=== PATIENT | male | born 1975 | race Caucasian/White ===

== ENCOUNTER 2020-11-29 08:21 | Day surgery (SDC) | payer BC, OTHER ==
[~2020-11-29 08:21] MED LIST: Lactated Ringers 1,000 ML IV SCH; propofoL 50 ML ONE
--- NOTE | 2020-11-29 09:20 | PCM.PREANE ---
Preanesthetic Assessment - Procedure Proposed Procedure: Colonoscopy - Anesthesia/Transfusion/Family Hx Anesthesia History: Prior Anesthesia Without Reaction Transfusion History: No Prior Transfusion(s) - Review of Systems Other: Reports: None (Chews Tobacco) - Physical Assessment NPO Status Date: 11/27/20 NPO Status Time: 22:30 Height: 5 ft 8 in Weight: 88.904 kg ASA Class: 2 Airway Class: Mallampati = 2 Thyro-Mental Finger Breadths: 3 Mouth Opening Finger Breadths: 3 - Allergies Allergies/Adverse Reactions: Allergies Allergy/AdvReac Type Severity Reaction Status Date / Time amoxicillin Allergy Rash Verified 11/22/20 11:37 - Acknowledgements Anesthesia Type Planned: General Anesthesia Pt an Appropriate Candidate for the Planned Anesthesia: Yes Alternatives and Risks of Anesthesia Discussed w Pt/Guardian: Yes Pt/Guardian Understands and Agrees with Anesthesia Plan: Yes PreAnesthesia Questionnaire HEENT History: Reports: Other (See Below) Other HEENT History: wears contacts Cardiovascular History: Reports: None Respiratory History: Reports: Other (See Below) Other Respiratory History: recently did a home test for sleep apnea- recommended by his dentist- no reports yet Gastrointestinal History: Reports: Chronic Diarrhea, Other (See Below) Other Gastrointestinal History: Abdominal pain Genitourinary History: Reports: None Musculoskeletal History: Reports: Fracture Other Musculoskeletal History: hx of fx right hand Neurological History: Reports: None Psychiatric History: Reports: Anxiety, Depression Endocrine/Metabolic History: Reports: None Hematologic History: Reports: None Immunologic History: Reports: None Oncologic (Cancer) History: Reports: None Dermatologic History: Reports: None - Past Surgical History Head Surgeries/Procedures: Reports: None HEENT Surgical History: Reports: None Cardiovascular Surgical History: Reports: None Respiratory Surgical History: Reports: None GI Surgical History: Reports: None Male Surgical History: Reports: None Endocrine Surgical History: Reports: None Neurological Surgical History: Reports: None Musculoskeletal Surgical History: Reports: Arthroscopic Knee, Other (See Below) Other Musculoskeletal Surgeries/Procedures:: ORIF right hand- has pins Oncologic Surgical History: Reports: None - SUBSTANCE USE Tobacco Use Status *Q: Current Every Day Tobacco User Tobacco Use Within Last Twelve Months: Snuff/Dip Recreational Drug Use History: No - HOME MEDS Home Medications: Home Meds ALPRAZolam [Xanax] 1 mg PO TID PRN 11/22/20 [History] buPROPion HCL [Bupropion HCl Sr] 150 mg PO DAILY 11/22/20 [History] - CURRENT (IN HOUSE) MEDS Current Meds: Current Medications Lactated Ringer's (Ringers, Lactated) 1,000 mls @ 125 mls/hr IV ASDIRECTED JUJU Discontinued Medications Propofol (Diprivan 50 Ml) Confirm Administered Dose 50 mls @ as directed .ROUTE .STK-MED ONE Stop: 11/29/20 06:29
[2020-11-29] MEDS ORDERED: Ondansetron 4 MG/2 ML SDV ONE (10:03)
[2020-11-29] MEDS ORDERED: Lidocaine 2% 5 ML SDV ONE (10:03)
[2020-11-29] MEDS ORDERED: fentaNYL 100 MCG/2 ML SDV ONE (10:03)
--- NOTE | 2020-11-29 10:25 | PCM.OPNOTE ---
- General Post-Op/Procedure Note Date of Surgery/Procedure: 11/29/20 Operative Procedure(s): Colonoscopy Pre Op Diagnosis: Left-sided abdominal pain. Sigmoid colon thickening on CT scan. Post-Op Diagnosis: No evidence of neoplasia or inflammatory bowel disease. Anesthesia Technique: MAC (ASA II) Primary Surgeon: Mumtaz Earl Condition: Good Free Text/Narrative:: DICTATION [id number] CPT CODE 16733
[2020-11-29] MEDS ORDERED: Lactated Ringers 1,000 ML IV SCH (10:30)
--- NOTE | 2020-11-29 10:37 | PCM.POSTAN ---
POST ANESTHESIA ASSESSMENT - MENTAL STATUS Mental Status: Alert - VITAL SIGNS Vital Signs: Last Vital Signs Temp 95.9 F L 11/29/20 09:20 Pulse 62 11/29/20 10:30 Resp 13 11/29/20 10:30 BP 115/81 11/29/20 10:30 Pulse Ox 96 11/29/20 10:30 - RESPIRATORY Respiratory Status: Respiratory Rate WNL - CARDIOVASCULAR CV Status: Pulse Rate WNL, Blood Pressure Stable - GASTROINTESTINAL GI Status: No Symptoms - PAIN Pain Score: 0 - POST OP HYDRATION Hydration Status: Adequate & Stable - OBSERVATIONS Free Text/Narrative:: Pt doing well post-op
--- NOTE | 2020-11-29 10:42 | PCM48HPAN ---
Post Anesthesia Note - EVALUATION WITHIN 48HRS OF ANESTHETIC Vital Signs in Normal Range: Yes Patient Participated in Evaluation: Yes Respiratory Function Stable: Yes Airway Patent: Yes Cardiovascular Function Stable: Yes Hydration Status Stable: Yes Pain Control Satisfactory: Yes Nausea and Vomiting Control Satisfactory: Yes Mental Status Recovered: Yes Vital Signs: Last Vital Signs Temp 95.9 F L 11/29/20 09:20 Pulse 62 11/29/20 10:30 Resp 13 11/29/20 10:30 BP 115/81 11/29/20 10:30 Pulse Ox 96 11/29/20 10:30 - COMMENTS/OBSERVATIONS Free Text/Narrative:: Pt doing well post-op. VSS. No apparent anesthetic complications.
--- NOTE | 2020-11-29 13:38 | OR ---
SURGEON: Mumtaz Earl M.D. DATE OF PROCEDURE: 11/29/2020 OPERATION PERFORMED: Colonoscopy. PRIMARY SURGEON: Mumtaz Earl MD ANESTHESIA: MAC. ASA CLASSIFICATION: II. PREOPERATIVE DIAGNOSES: Left-sided abdominal pain with abnormal CT scan, possible colitis. POSTOPERATIVE DIAGNOSES: No evidence of neoplasia or inflammatory bowel disease. DESCRIPTION OF PROCEDURE: The patient was taken to the endoscopy room and positioned on the endoscopy table in the left lateral decubitus position. Time-out was called for appropriate identification of the patient and procedure. Monitored anesthesia care was provided. The colonoscope was inserted into the rectum and advanced with minimal difficulty to the cecum. The cecum was identified by internal landmarks and external pressure. The colonoscope was retroflexed to visualize the ascending colon from below, then straightened, and slowly withdrawn. The cecum, ascending colon, hepatic flexure, transverse colon, splenic flexure, and descending colon showed no tumors, polyps, diverticula, or angiodysplastic changes. Sigmoid colon was well visualized and showed no mucosal abnormalities or any inflammatory or erythematous lesions. No polyps or diverticular changes were noted. The colonoscope was then withdrawn to the rectum and retroflexed to visualize the anal orifice from above. Again, no tumors or polyps were seen and there were no acute hemorrhoidal changes. The colonoscope was then straightened, the rectum aspirated, and the colonoscope removed. The patient tolerated the procedure well and was taken to recovery room in stable condition. NIKHIL / YASMANY /[id number]
== END 2020-11-29 10:49 | disposition home or self-care (01) ==
LOC: MW.SDS 08:21
PROVIDERS: ATTEND Surgery
DX: R10.32 Left lower quadrant pain (principal); R93.3 Abnormal findings on diagnostic imaging of other parts of digestive tract; Z88.1 Allergy status to other antibiotic agents; Z79.899 Other long term (current) drug therapy; Z98.890 Other specified postprocedural states; Z87.891 Personal history of nicotine dependence; Z01.812 Encounter for preprocedural laboratory examination; Z20.822 Contact with and (suspected) exposure to COVID-19
CPT/HCPCS: 45378; 87635; J2405; J2704; J3010; J7120; 00811; U0002